=== PATIENT | female | born 1960 | race American Indian/Alaskan Native ===

== ENCOUNTER 2017-05-28 19:10 | Emergency (ER) | payer OTHER ==
[2017-05-28 19:20] VITALS: BP 145/91; PULSE 74; RESP 16; TEMP 98.9; O2SAT 99
--- NOTE | 2017-05-28 19:56 | ED PDOC ---
Lower Extremity Pain/Injury Time Seen by Provider: 05/28/17 19:24 Chief Complaint (Nursing): Lower Extremity Problem/Injury Chief Complaint (Provider): Bilateral foot pain History Per: Patient History/Exam Limitations: no limitations Onset/Duration Of Symptoms: Other (2 months) Additional Complaint(s): Patient is a 57 y/o female presenting to the emergency department for excruciating pain on both her feet, ongoing for one year but worse over the last two months, with swelling and bruising noted on her left foot and ankle. Reports that the pain is worse in the morning after getting up or sitting too long, and is improved by standing on her toes or lifting her foot. Denies pain elsewhere and other complaints. PCP: Dr. Leanne Fragoso Past Medical History Reviewed: Historical Data Vital Signs: Last Vital Signs Temp 98.9 F 05/28/17 19:18 Pulse 74 05/28/17 19:18 Resp 16 05/28/17 19:18 BP 145/91 H 05/28/17 19:18 Pulse Ox 99 05/28/17 19:18 - Medical History PMH: Denies: Diabetes, HTN - Surgical History Surgical History: (x 3) - Family History Family History: States: No Known Family Hx - Home Medications Home Medications: Ambulatory Orders Medication Instructions Recorded Albuterol HFA [Ventolin HFA 90 2 puff IH [id number] #1 inh 01/03/15 mcg/actuation (8 g)] Albuterol Sulfate [Albuterol 3 ml IH Q6 #20 randa 01/03/15 Sulfate 2.5mg/3 ml 0.083%] Azithromycin [Zithromax Z-Thiago] 250 mg PO DAILY #1 packet 01/03/15 Codeine Phosphate/Guaifenesi 1 tab PO BID PRN #20 tab 01/03/15 [Codeine Phosphate/Guaifenesin 10 mg-300 mg] Ibuprofen [Motrin] 600 mg PO Q6H PRN #20 tab 07/03/15 Footcare,Miscellaneous [Plantar 1 each MC DAILY #4 each 05/28/17 Fasciitis Arch Sleeve] - Allergies Allergies/Adverse Reactions: Allergies Allergy/AdvReac Type Severity Reaction Status Date / Time No Known Allergies Allergy Unverified 08/08/13 14:25 Review of Systems ROS Statement: Except As Marked, All Systems Reviewed And Found Negative Musculoskeletal: Positive for: Foot Pain (left foot, on medial aspect of foot with minor swelling and bruising) Physical Exam - Reviewed Nursing Documentation Reviewed: Yes (0) Vital Signs Reviewed: Yes - Physical Exam Appears: Positive for: Well, Non-toxic, No Acute Distress Head Exam: Positive for: ATRAUMATIC, NORMAL INSPECTION, NORMOCEPHALIC Skin: Positive for: Normal Color, Warm, Dry Eye Exam: Positive for: Normal appearance. Negative for: Scleral icterus Respiratory: Negative for: Accessory Muscle Use, Respiratory Distress Extremity: Positive for: Swelling (swelling to medial aspect of left ankle). Negative for: Tenderness (planar aspect of left foot or achilles tenderness) Neurologic/Psych: Positive for: Alert, Oriented (x3) - ECG O2 Sat by Pulse Oximetry: 99 (RA) Pulse Ox Interpretation: Normal - Radiology X-Ray: Interpreted by Me X-Ray Interpretation: No Acute Disease Medical Decision Making Medical Decision Makin:48 Initial impression: left foot pain Differential diagnoses include but not limited to plantar fasciitis, achilles tendonitis, bone spurs. Initial plan: -X-ray of left foot -Reevaluation negative xray of foot will be advised to f.u with podiatry and given Rx for plantar fasciaitis splint. Scribe Attestation: Documented by Marifer Malcolm, acting as a scribe for KATELYN Vera. Provider Scribe Attestation: All medical record entries made by the Scribe were at my direction and personally dictated by me. I have reviewed the chart and agree that the record accurately reflects my personal performance of the history, physical exam, medical decision making, and the department course for this patient. I have also personally directed, reviewed, and agree with the discharge instructions and disposition. Disposition - Clinical Impression Clinical Impression: Plantar fasciitis - Patient ED Disposition Is Patient to be Admitted: No Counseled Patient/Family Regarding: Diagnosis, Need For Followup, Rx Given - Disposition Referrals: Podiatry Clinic [Outside] Disposition: Routine/Home Disposition Time: 20:27 Condition: STABLE Prescriptions: Footcare,Miscellaneous [Plantar Fasciitis Arch Sleeve] 1 each MC DAILY #4 each Instructions: Plantar Fasciitis (ED) Forms: [employer] (Romanian), [email or web address] ED School/Work Excuse
[2017-05-28] MEDS ORDERED: Triamcinolone Acetonide 40 mg/mL Inj IM ONE (21:16)
[2017-05-28] MEDS ORDERED: Lidocaine 1% Inj (20ml) IJ STA (21:16)
[2017-05-28] MEDS ORDERED: Dexamethasone 4 mg/1 ml IM STA (21:17)
[2017-05-28] MEDS ORDERED: Dexamethasone 4 mg/1 ml ONE (21:26)
--- NOTE | 2017-05-28 21:26 | CP.PCM.CON ---
History of Present Illness - History of Present Illness History of Present Illness: 57 year old female patient with unremarkable PMHx seen in the ED complaining of bilateral heel pain, L>R. Patient states she has been experiencing this pain for the past year, however has worsened greatly within the past 2 months. Patient rates the pain as 10/10 on the left heel and 5/10 on the right heel, and experiences the most pain at the first step of the day or after long periods of rest. Patient states the pain subsides after she is walking for a little while. Patient states she mostly wears flip flops when she walks to cushion her heels. Patient denies taking medications to alleviate the pain. Patient denies N/V/F/D/C/SOB/calf pain. No other pedal complaints at this time. PMH: unremarkable PSH: FH: non-contributory SH: no ETOH, no tobacco use, no illicit drug use Meds: none All: NKDA Review of Systems - Review of Systems All systems: reviewed and no additional remarkable complaints except (as per HPI ) Past Patient History - Past Social History Smoking Status: Never Smoked - CARDIAC Hx Hypertension: No - PULMONARY Hx Respiratory Disorders: Yes - NEUROLOGICAL Hx Neurological Disorder: No - HEENT Hx HEENT Problems: No - ENDOCRINE/METABOLIC Hx Endocrine Disorders: No - HEMATOLOGICAL/ONCOLOGICAL Hx Blood Disorders: No - INTEGUMENTARY Hx Dermatological Problems: No - MUSCULOSKELETAL/RHEUMATOLOGICAL Hx Musculoskeletal Disorders: No - GASTROINTESTINAL Hx Gastrointestinal Disorders: No - GENITOURINARY/GYNECOLOGICAL Hx Genitourinary Disorders: No - PSYCHIATRIC Hx Psychophysiologic Disorder: No Hx Substance Use: No - SURGICAL HISTORY Hx Surgeries: No Hx Section: Yes (x3) - ANESTHESIA Hx Anesthesia: No Meds Home Medications: Home Medication List Medication Instructions Recorded Confirmed Type Footcare,Miscellaneous [Plantar 1 each MC DAILY #4 each 05/28/17 Rx Fasciitis Arch Sleeve] Allergies/Adverse Reactions: Allergies Allergy/AdvReac Type Severity Reaction Status Date / Time No Known Allergies Allergy Unverified 08/08/13 14:25 Physical Exam - Constitutional Appears: Well, Non-toxic, No Acute Distress - Extremities Exam Additional comments: VASC: DP and PT pulses palpable 2/4 b/l. CFT <3 seconds to all digits x10. TG warm to warm. Nonpitting edema noted to medial L calcaneus. NEURO: Gross sensation intact b/l. DERM: No open lesions, rashes, or subcutaneous nodules. Skin appears well hydrated ORTHO: Pain on palpation medial calcaneal tubercle b/l, L>R. No pain on palpation medial arch b/l. No pain on calcaneal squeeze b/l. No pain on palpation to Achilles tendon b/l. Pes planus foot type. - Neurological Exam Neurological exam: Alert, Oriented x3 - Psychiatric Exam Psychiatric exam: Normal Affect, Normal Mood Results - Vital Signs Recent Vital Signs: Last Vital Signs Temp 98.9 F 05/28/17 19:18 Pulse 74 05/28/17 19:18 Resp 16 05/28/17 19:18 BP 145/91 H 05/28/17 19:18 Pulse Ox 99 05/28/17 20:28 Assessment & Plan - Assessment and Plan (Free Text) Assessment: 57 year old female with plantar fasciitis b/l. Plan: Patient seen and evaluated in ED Discussed with attending, Dr. Trotter Chart and vitals reviewed L ankle XR reviewed: increase in soft tissue density to medial aspect of calcaneus. No acute fracture noted Educated patient on proper shoe gear and 3x/day stretching exercises Recommend RICE therapy Recommend Meloxicam 3cc injection 1:1:1 mixture 1% lidocaine plain, dexamethasone, [id number] injected into medial aspect of left calcaneus. Patient tolerated injection well , without incident Patient is to follow up in Dr. Trotter's [place] office on Wednesday/Wednesday to evaluate left heel pain, possible right heel injection Stable from podiatry standpoint Thank you for this consult, please reconsult podiatry as needed - Date & Time Date: 05/28/17 Time: 22:10
[2017-05-28] MEDS ORDERED: Lidocaine 1% Inj (20ml) ONE (21:27)
--- NOTE | 2017-05-29 09:26 | RAD ---
PROCEDURE: Left Ankle Radiographs. HISTORY: ankle pain COMPARISON: None FINDINGS: BONES: Normal. No fracture. JOINTS: Normal. No osteoarthritis. Ankle mortise maintained. Talar dome intact SOFT TISSUES: Normal. OTHER FINDINGS: None. IMPRESSION: No evidence of acute displaced fracture nor dislocation. .
== END 2017-05-28 22:25 | disposition home or self-care (01) ==
LOC: H.ER 19:10
DX: M72.2 Plantar fascial fibromatosis (principal)

== ENCOUNTER 2017-12-27 19:07 | Emergency (ER) | payer OTHER ==
[2017-12-27 19:30] VITALS: BP 166/90; PULSE 78; RESP 18; TEMP 99; O2SAT 99
[2017-12-27] MEDS ORDERED: Lidocaine 1% Inj (20ml) IJ ONE (19:57)
--- NOTE | 2017-12-27 20:02 | ED PDOC ---
HPI: General Adult Time Seen by Provider: 12/27/17 19:34 Chief Complaint (Nursing): Abnormal Skin Integrity Chief Complaint (Provider): boil History Per: Patient History/Exam Limitations: no limitations Onset/Duration Of Symptoms: Days (1 month) Current Symptoms Are (Timing): Still Present Additional Complaint(s): Pt. with lump on her pubic area for 1 month. In past 5 days it has grown and painful. No dc. No fever, cough, weakness, dysuria, vaginal dc. No back pain. No abd pain. Has not taken any meds for it. No weakness. Past Medical History Reviewed: Nursing Documentation, Vital Signs Vital Signs: Last Vital Signs Temp 99 F 12/27/17 19:27 Pulse 78 12/27/17 19:27 Resp 18 12/27/17 19:27 BP 166/90 H 12/27/17 19:27 Pulse Ox 99 12/27/17 20:04 - Medical History PMH: No Chronic Diseases Denies: Diabetes, HTN - Surgical History Surgical History: (x 3) - Family History Family History: States: Unknown Family Hx - Social History Alcohol: None Drugs: Denies - Immunization History Hx Tetanus Toxoid Vaccination: No Hx Influenza Vaccination: No Hx Pneumococcal Vaccination: No - Home Medications Home Medications: Ambulatory Orders Medication Instructions Recorded Albuterol HFA [Ventolin HFA 90 2 puff IH [id number] #1 inh 01/03/15 mcg/actuation (8 g)] Albuterol Sulfate [Albuterol 3 ml IH Q6 #20 randa 01/03/15 Sulfate 2.5mg/3 ml 0.083%] Azithromycin [Zithromax Z-Thiago] 250 mg PO DAILY #1 packet 01/03/15 Codeine Phosphate/Guaifenesi 1 tab PO BID PRN #20 tab 01/03/15 [Codeine Phosphate/Guaifenesin 10 mg-300 mg] Ibuprofen [Motrin] 600 mg PO Q6H PRN #20 tab 07/03/15 Footcare,Miscellaneous [Plantar 1 each MC DAILY #4 each 05/28/17 Fasciitis Arch Sleeve] Meloxicam [Mobic] 15 mg PO BID #15 tab 05/28/17 Clindamycin [Cleocin] 300 mg PO QID 7 Days cap 12/27/17 Ibuprofen [Motrin] 600 mg PO TID 7 Days tab 12/27/17 - Allergies Allergies/Adverse Reactions: Allergies Allergy/AdvReac Type Severity Reaction Status Date / Time No Known Allergies Allergy Unverified 08/08/13 14:25 Review of Systems ROS Statement: Except As Marked, All Systems Reviewed And Found Negative Genitourinary Female: Positive for: Pelvic Pain (pubic pain) Skin: Positive for: Lesions Physical Exam - Reviewed Nursing Documentation Reviewed: Yes Vital Signs Reviewed: Yes - Physical Exam Appears: Positive for: Non-toxic, No Acute Distress Head Exam: Positive for: ATRAUMATIC, NORMAL INSPECTION, NORMOCEPHALIC Skin: Positive for: Normal Color, Warm, DRY Eye Exam: Positive for: EOMI, Normal appearance, PERRL ENT: Positive for: Normal ENT Inspection Neck: Positive for: Normal, Painless ROM Cardiovascular/Chest: Positive for: Regular Rate, Rhythm Respiratory: Positive for: CNT, Normal Breath Sounds Gastrointestinal/Abdominal: Positive for: Normal Exam, Soft. Negative for: Tenderness Pelvic Exam: Positive for: Other (Meena supervised; pubic area examined: central area with 1/2 in diameter fluctuant area with mild erythema; no dc; tender; indurated.) Back: Positive for: Normal Inspection Extremity: Positive for: Normal ROM Neurologic/Psych: Positive for: Alert, Oriented - ECG O2 Sat by Pulse Oximetry: 99 Pulse Ox Interpretation: Normal - Progress ED Course And Treament: 2044: Stable. AAOx3. Pt. consented to I and D. Aware of procedure instructions. 1 inch packing [address] in place. Pt to fu or return here in 3 days for packing removal Procedures - Incision and Drainage Site: pubic area Blade Size: 11 I & D Procedure: betadine prep, gauze wick placed ([address]) Progress: 2% lido used to anesthetize area (1ml). 11 blade advanced and purulent dc came out. Pressure applied and loculations broken with further dc taken out. Tolerated procedure. Disposition - Clinical Impression Clinical Impression: Abscess - Patient ED Disposition Is Patient to be Admitted: No Counseled Patient/Family Regarding: Diagnosis, Need For Followup, Rx Given - Disposition Referrals: [facility] [Outside] - 12/29/17 Disposition: Routine/Home Disposition Time: 20:49 Condition: STABLE Additional Instructions: Return in 3 days or see your doctor without fail for packing removal and re- evaluation. Prescriptions: Clindamycin [Cleocin] 300 mg PO QID 7 Days cap Ibuprofen [Motrin] 600 mg PO TID 7 Days tab Instructions: Abscess Incision and Drainage Forms: [facility] ([place]ander), [facility] ED School/Work Excuse
[2017-12-27] MEDS ORDERED: Lidocaine 2% Inj (20ml) ONE (20:15)
[2017-12-27] MEDS ORDERED: Oxycodone/Acetaminophen 5/325 mg Tab PO ONE (20:58)
[2017-12-27] MEDS ORDERED: Oxycodone/Acetaminophen 5/325 mg Tab ONE (21:02)
[2017-12-27] MEDS ORDERED: Lidocaine 1% (10 ml) Inj INJ ONE (21:15)
== END 2017-12-27 21:14 | disposition home or self-care (01) ==
LOC: H.ER 19:07
DX: L02.214 Cutaneous abscess of groin (principal)
CPT/HCPCS: 10060; 87070; 87181; 96372; 99282; J1885

== ENCOUNTER 2018-07-14 14:34 | Emergency (ER) | payer OTHER ==
[2018-07-14 14:40] VITALS: BP 144/78; PULSE 78; RESP 18; TEMP 98.4; O2SAT 100
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
== END 2018-07-14 16:46 | disposition home or self-care (01) ==
LOC: H.ER 14:34
DX: L03.90 Cellulitis, unspecified (principal)

== ENCOUNTER 2018-07-15 12:06 | Emergency (ER) | payer OTHER ==
[2018-07-15 12:12] VITALS: BP 139/92; PULSE 91; RESP 18; TEMP 98.5; O2SAT 98
[2018-07-15] MEDS ORDERED: Tdap Vaccine 0.5 ml Vial (10-64 yrs) IM ONE (12:33)
[2018-07-15] MEDS ORDERED: Naproxen 500 MG TAB PO STA (12:33)
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
== END 2018-07-15 12:59 | disposition home or self-care (01) ==
LOC: H.ER 12:06
DX: L03.211 Cellulitis of face (principal)
CPT/HCPCS: 90471; 90715; 96372; 99283; J1100

== ENCOUNTER 2018-10-07 20:25 | Emergency (ER) | payer OTHER ==
[2018-10-07 20:44] VITALS: O2SAT 100
--- NOTE | 2018-10-07 21:40 | ED PDOC ---
HPI: Influenza Time Seen by Provider: 10/07/18 21:14 Chief Complaint: Cough, Cold, Congestion Chief Complaint (Provider): Cough History Per: Patient Exam Limitations: no limitations Additional complaint(s):: Pt. with cough for 2 weeks. Body aches. Sore throat mild but able to tolerate po. Has nasal congestion, runny nose. Weakness mild all over. No chest pain, dyspnea, nausea, vomit, diarrhea. No numbness, tingles. No dizziness. Only took theraflu at home. No fever at home. Past Medical History Reviewed: Nursing Documentation, Vital Signs Vital Signs: Last Vital Signs Temp 98.2 F 10/07/18 20:42 Pulse 85 10/07/18 20:42 Resp 18 10/07/18 20:42 BP 142/88 10/07/18 20:42 Pulse Ox 100 10/07/18 20:42 - Medical History PMH: No Chronic Diseases Denies: Diabetes, HTN - Surgical History Surgical History: (x 3) - Family History Family History: States: Unknown Family Hx - Immunization History Hx Tetanus Toxoid Vaccination: No (not UTD) Hx Influenza Vaccination: No Hx Pneumococcal Vaccination: No - Home Medications Home Medications: Ambulatory Orders Medication Instructions Recorded Albuterol HFA [Ventolin HFA 90 2 puff IH [id number] #1 inh 01/03/15 mcg/actuation (8 g)] Albuterol Sulfate [Albuterol 3 ml IH Q6 #20 randa 01/03/15 Sulfate 2.5mg/3 ml 0.083%] Azithromycin [Zithromax Z-Thiago] 250 mg PO DAILY #1 packet 01/03/15 Codeine Phosphate/Guaifenesi 1 tab PO BID PRN #20 tab 01/03/15 [Codeine Phosphate/Guaifenesin 10 mg-300 mg] Ibuprofen [Motrin] 600 mg PO Q6H PRN #20 tab 07/03/15 Footcare,Miscellaneous [Plantar 1 each MC DAILY #4 each 05/28/17 Fasciitis Arch Sleeve] Meloxicam [Mobic] 15 mg PO BID #15 tab 05/28/17 Clindamycin [Cleocin] 300 mg PO QID 7 Days cap 12/27/17 Ibuprofen [Motrin] 600 mg PO TID 7 Days tab 12/27/17 traMADol [Ultram] 25 mg PO BID PRN 4 Days tab 12/27/17 Bacitracin [Bacitracin Opht OINT] 0.5 gm TOP BID #1 tube 07/14/18 Cephalexin [Keflex] 500 mg PO QID #28 capsule 07/14/18 Sulfamethoxazole/Trimethoprim 1 each PO BID #14 tablet 07/14/18 [Bactrim Ds Tablet] Naproxen [Naprosyn] 500 mg PO BID PRN #20 tablet 07/15/18 Benzonatate [Tessalon Perles] 100 mg PO BID PRN 5 Days sgl 10/07/18 Ibuprofen [Motrin] 600 mg PO TID 7 Days tab 10/07/18 - Allergies Allergies/Adverse Reactions: Allergies Allergy/AdvReac Type Severity Reaction Status Date / Time No Known Allergies Allergy Unverified 07/15/18 12:12 Review of Systems ROS Statement: Except As Marked, All Systems Reviewed And Found Negative Constitutional: Positive for: Weakness ENT: Positive for: Nose Discharge, Nose Congestion, Throat Pain Respiratory: Positive for: Cough Neurological: Positive for: Weakness Physical Exam - Reviewed Nursing Documentation Reviewed: Yes Vital Signs Reviewed: Yes - Physical Exam Appears: Positive for: Non-toxic, No Acute Distress Head Exam: Positive for: ATRAUMATIC, NORMAL INSPECTION, NORMOCEPHALIC Skin: Positive for: Normal Color, Warm, DRY Eye Exam: Positive for: EOMI, Normal appearance, PERRL ENT: Positive for: TM Is/Are (no gross erythema; mild fluid b/l), Nasal Congestion. Negative for: Pharyngeal Erythema, Tonsillar Exudate Neck: Positive for: Normal, Painless ROM, Supple Cardiovascular/Chest: Positive for: Regular Rate, Rhythm Respiratory: Positive for: Normal Breath Sounds. Negative for: Decreased Breath Sounds, Accessory Muscle Use, Wheezing Gastrointestinal/Abdominal: Positive for: Normal Exam, Soft. Negative for: Tenderness Back: Positive for: Normal Inspection. Negative for: L CVA Tenderness, R CVA Tenderness Extremity: Positive for: Normal ROM. Negative for: Tenderness, Pedal Edema Neurologic/Psych: Positive for: Alert, communications tech II-XII, Oriented. Negative for: Motor/Sensory Deficits Medical Decision Making Medical Decision Makin: Had extensive discussion with pt. about URI and flu. Pt. aware that tamiflu not effective after 3 days. Pt. aware that most URI are viral so antibiotics will not help. Pt. offered flu test despite discussion about no tx at this point as pt. is out of window. Pt. refuses. Agrees to taking motrin and tessalon pearles. Will take thera flu at home. Will fu with clinic. Aware to return if short of breath, not getting better or worse. Jesus then need blood work and x-ray for further evaluation. Pt. with no other questions and agrees to current care and management. - ECG O2 Sat by Pulse Oximetry: 100 Disposition - Clinical Impression Clinical Impression: Common cold - Patient ED Disposition Is Patient to be Admitted: No Counseled Patient/Family Regarding: Diagnosis, Need For Followup, Rx Given - Disposition Referrals: [facility] [Outside] - 10/10/18 Disposition: Routine/Home Disposition Time: 21:42 Condition: STABLE Additional Instructions: Return if not better in 3 days. Prescriptions: Benzonatate [Tessalon Perles] 100 mg PO BID PRN 5 Days sgl PRN Reason: Cough Ibuprofen [Motrin] 600 mg PO TID 7 Days tab Instructions: Viral Upper Respiratory Infection, Adult (DC) Forms: [employer] (Frisian)
[2018-10-07 22:24] VITALS: BP 128/70; PULSE 78; RESP 19; TEMP 97.6
== END 2018-10-07 22:20 | disposition home or self-care (01) ==
LOC: H.ER 20:25
DX: J00 Acute nasopharyngitis [common cold] (principal)

== ENCOUNTER 2018-10-12 22:24 | Emergency (ER) | payer OTHER ==
[2018-10-12 22:52] VITALS: BP 146/96; PULSE 91; RESP 18; TEMP 99.9; O2SAT 99
--- NOTE | 2018-10-12 23:10 | ED PDOC ---
HPI: Influenza Time Seen by Provider: 10/12/18 23:07 Chief Complaint: Cough, Cold, Congestion Chief Complaint (Provider): ENT Probaugusto History Per: Patient Exam Limitations: no limitations Have you had recent travel within the past 21 days to any of: No Onset/Duration Of Symptoms: Days (four) Symptoms include: fever, headache, bodyaches (Pt presents to the ED with a mild fever and complaining of left sided ear pain and sore throat as well as coughing mucous. Pt denies other symptoms, including NVD), sore throat, nasal congestion Past Medical History Reviewed: Historical Data, Nursing Documentation, Vital Signs Vital Signs: Last Vital Signs Temp 99.9 F H 10/12/18 22:48 Pulse 91 H 10/12/18 22:48 Resp 18 10/12/18 22:48 BP 146/96 H 10/12/18 22:48 Pulse Ox 99 10/12/18 22:48 - Medical History PMH: Denies: Diabetes, HTN - Surgical History Surgical History: (x 3) - Family History Family History: States: Unknown Family Hx - Immunization History Hx Tetanus Toxoid Vaccination: No (not UTD) Hx Influenza Vaccination: No Hx Pneumococcal Vaccination: No - Home Medications Home Medications: Ambulatory Orders Medication Instructions Recorded Albuterol HFA [Ventolin HFA 90 2 puff IH [id number] #1 inh 01/03/15 mcg/actuation (8 g)] Albuterol Sulfate [Albuterol 3 ml IH Q6 #20 randa 01/03/15 Sulfate 2.5mg/3 ml 0.083%] Azithromycin [Zithromax Z-Thiago] 250 mg PO DAILY #1 packet 01/03/15 Codeine Phosphate/Guaifenesi 1 tab PO BID PRN #20 tab 01/03/15 [Codeine Phosphate/Guaifenesin 10 mg-300 mg] Ibuprofen [Motrin] 600 mg PO Q6H PRN #20 tab 07/03/15 Footcare,Miscellaneous [Plantar 1 each MC DAILY #4 each 05/28/17 Fasciitis Arch Sleeve] Meloxicam [Mobic] 15 mg PO BID #15 tab 05/28/17 Clindamycin [Cleocin] 300 mg PO QID 7 Days cap 12/27/17 Ibuprofen [Motrin] 600 mg PO TID 7 Days tab 12/27/17 traMADol [Ultram] 25 mg PO BID PRN 4 Days tab 12/27/17 Bacitracin [Bacitracin Opht OINT] 0.5 gm TOP BID #1 tube 07/14/18 Cephalexin [Keflex] 500 mg PO QID #28 capsule 07/14/18 Sulfamethoxazole/Trimethoprim 1 each PO BID #14 tablet 07/14/18 [Bactrim Ds Tablet] Naproxen [Naprosyn] 500 mg PO BID PRN #20 tablet 07/15/18 Benzonatate [Tessalon Perles] 100 mg PO BID PRN 5 Days sgl 10/07/18 Ibuprofen [Motrin] 600 mg PO TID 7 Days tab 10/07/18 Promethazine HCl/Codeine 5 ml PO QID #100 ml 10/12/18 [Promethazine-Codeine Syrup] - Allergies Allergies/Adverse Reactions: Allergies Allergy/AdvReac Type Severity Reaction Status Date / Time No Known Allergies Allergy Unverified 10/12/18 22:46 Review of Systems ROS Statement: Except As Marked, All Systems Reviewed And Found Negative Constitutional: Positive for: Fever, Chills ENT: Positive for: Ear Pain, Nose Discharge, Nose Congestion, Throat Pain Physical Exam - Reviewed Nursing Documentation Reviewed: Yes Vital Signs Reviewed: Yes - Physical Exam Appears: Positive for: Well, Non-toxic, No Acute Distress. Negative for: Uncomfortable Head Exam: Positive for: ATRAUMATIC, NORMAL INSPECTION Skin: Positive for: Normal Color, Warm, Dry. Negative for: Diaphoresis, Pallor, Rash Eye Exam: Positive for: Normal appearance. Negative for: Nystagmus, Periorbital swelling, Periorbital tenderness ENT: Positive for: Pharynx Is (erythematous bilaterally; no tonsillar exudate or edema; tonsils are enlarged to +1), TM Is/Are (on the left TM is visible with good light reflection; there is marked erythemity in the canal and the TM itself appears to be translucent; ) Neck: Positive for: Normal, Painless ROM, Supple. Negative for: Decreased ROM Cardiovascular/Chest: Positive for: Regular Rate, Rhythm Respiratory: Positive for: Normal Breath Sounds Pulses-Carotid (L): 2+ Pulses-Carotid (R): 2+ Pulses-Post. Tibialis (R): 2+ Pulses-Radial (L): 2+ Medical Decision Making Medical Decision Making: Clinical Otitis Media; rapid influenza performed as well will tx pt with augmentin and tamiflu (pending results) Pt is negative for influenza Pt is stable for discharge and will be tx with augmentin - ECG O2 Sat by Pulse Oximetry: 99 Disposition - Clinical Impression Clinical Impression: Otitis media - Patient ED Disposition Is Patient to be Admitted: No Doctor Will See Patient In The: Office Counseled Patient/Family Regarding: Studies Performed, Diagnosis, Need For Followup, Rx Given - Disposition Referrals: [facility] [Outside] Disposition: Routine/Home Disposition Time: 23:37 Condition: STABLE Prescriptions: Promethazine HCl/Codeine [Promethazine-Codeine Syrup] 5 ml PO QID #100 ml Instructions: Ear Infections (Otitis Media), Ear Infections (Otitis Media) (DC) Forms: [employer] (Finnish)
== END 2018-10-13 00:05 | disposition home or self-care (01) ==
LOC: H.ER 22:24
DX: H66.90 Otitis media, unspecified, unspecified ear (principal)

== ENCOUNTER 2018-10-21 18:34 | Emergency (ER) | payer OTHER ==
[2018-10-21 18:51] VITALS: BP 161/93; PULSE 93; RESP 18; TEMP 98.3; O2SAT 100
--- NOTE | 2018-10-21 19:13 | ED PDOC ---
HPI: General Adult Time Seen by Provider: 10/21/18 19:10 Chief Complaint (Nursing): ENT Problem Chief Complaint (Provider): ENT problem History Per: Patient History/Exam Limitations: no limitations Onset/Duration Of Symptoms: Other (x1 week) Current Symptoms Are (Timing): Still Present Additional Complaint(s): 58 year old female presents to the ED complaining of feeling fullness and itchiness for 1 week in the left ear after a course of Augmentin. PMD: none provided Past Medical History Reviewed: Historical Data, Nursing Documentation, Vital Signs Vital Signs: Last Vital Signs Temp 98.3 F 10/21/18 18:48 Pulse 93 H 10/21/18 18:48 Resp 18 10/21/18 18:48 BP 161/93 H 10/21/18 18:48 Pulse Ox 100 10/21/18 18:48 - Medical History PMH: No Chronic Diseases Denies: Diabetes, HTN - Surgical History Surgical History: (x 3) - Family History Family History: States: Unknown Family Hx - Immunization History Hx Tetanus Toxoid Vaccination: No (not UTD) Hx Influenza Vaccination: No Hx Pneumococcal Vaccination: No - Home Medications Home Medications: Ambulatory Orders Medication Instructions Recorded Albuterol Sulfate [Albuterol 3 ml IH Q6 #20 randa 01/03/15 Sulfate 2.5mg/3 ml 0.083%] Azithromycin [Zithromax Z-Thiago] 250 mg PO DAILY #1 packet 01/03/15 Codeine Phosphate/Guaifenesi 1 tab PO BID PRN #20 tab 01/03/15 [Codeine Phosphate/Guaifenesin 10 mg-300 mg] RX: Albuterol HFA [Ventolin HFA 90 2 puff IH [id number] #1 inh 01/03/15 mcg/actuation (8 g)] Ibuprofen [Motrin] 600 mg PO Q6H PRN #20 tab 07/03/15 Footcare,Miscellaneous [Plantar 1 each MC DAILY #4 each 05/28/17 Fasciitis Arch Sleeve] RX: Meloxicam [Mobic] 15 mg PO BID #15 tab 05/28/17 Ibuprofen [Motrin] 600 mg PO TID 7 Days tab 12/27/17 RX: Clindamycin [Cleocin] 300 mg PO QID 7 Days cap 12/27/17 RX: traMADol [Ultram] 25 mg PO BID PRN 4 Days tab 12/27/17 Bacitracin [Bacitracin Opht OINT] 0.5 gm TOP BID #1 tube 07/14/18 RX: Cephalexin [Keflex] 500 mg PO QID #28 capsule 07/14/18 Sulfamethoxazole/Trimethoprim 1 each PO BID #14 tablet 07/14/18 [Bactrim Ds Tablet] Naproxen [Naprosyn] 500 mg PO BID PRN #20 tablet 07/15/18 Benzonatate [Tessalon Perles] 100 mg PO BID PRN 5 Days sgl 10/07/18 Ibuprofen [Motrin] 600 mg PO TID 7 Days tab 10/07/18 Amoxicillin/Clavulanate [Augmentin 1 tab PO BID #20 tab 10/12/18 875 MG-125 MG] Promethazine HCl/Codeine 5 ml PO QID #100 ml 10/12/18 [Promethazine-Codeine Syrup] RX: Clindamycin [Cleocin] 1 cap PO QID #40 cap 10/21/18 - Allergies Allergies/Adverse Reactions: Allergies Allergy/AdvReac Type Severity Reaction Status Date / Time No Known Allergies Allergy Unverified 10/21/18 18:48 Review of Systems ROS Statement: Except As Marked, All Systems Reviewed And Found Negative ENT: Positive for: Other (Left ear fullness and itchiness) Physical Exam - Reviewed Nursing Documentation Reviewed: Yes Vital Signs Reviewed: Yes - Physical Exam Appears: Positive for: Non-toxic, No Acute Distress Head Exam: Positive for: ATRAUMATIC, NORMOCEPHALIC Skin: Positive for: Normal Color, Warm, Dry Eye Exam: Positive for: Normal appearance ENT: Positive for: Other (Left TM injected around the border; (+) light reflex; all land haider visible; Canal clear without edema or erythema) Neck: Positive for: Normal, Painless ROM Cardiovascular/Chest: Positive for: Regular Rate, Rhythm Respiratory: Positive for: Normal Breath Sounds. Negative for: Wheezing, Respiratory Distress Neurologic/Psych: Positive for: Alert, Oriented. Negative for: Motor/Sensory Deficits - ECG O2 Sat by Pulse Oximetry: 100 (RA) Pulse Ox Interpretation: Normal Medical Decision Making Medical Decision Making: Initial Plan: Will give referral to ENT. Patient will keep her appointment with the clinic on the . Will prescribe patient with a different antibiotic noting she most likely failed Augmentin. Scribe Attestation: Documented by Travon Marques acting as a scribe for Kendall [id number]. Provider Scribe Attestation: All medical record entries made by the Scribe were at my direction and personally dictated by me. I have reviewed the chart and agree that the record accurately reflects my personal performance of the history, physical exam, medical decision making, and the department course for this patient. I have also personally directed, reviewed, and agree with the discharge instructions and disposition. Disposition - Clinical Impression Clinical Impression: Left ear pain, Otitis media follow-up, not resolved, Otitis media Counseled Patient/Family Regarding: Studies Performed, Diagnosis, Need For Followup, Rx Given - Disposition Referrals: [facility] [Outside] Celestine Liu MD [Staff Provider] - Disposition: Routine/Home Disposition Time: 20:19 Condition: STABLE Prescriptions: RX: Clindamycin [Cleocin] 1 cap PO QID #40 cap Instructions: Ear Infections (Otitis Media), Ear Infections (Otitis Media) (DC) Forms: [employer] (Hebrew)
== END 2018-10-21 19:45 | disposition home or self-care (01) ==
LOC: H.ER 18:34
DX: H92.02 Otalgia, left ear (principal); H66.90 Otitis media, unspecified, unspecified ear